=== PATIENT | male | born 1955 | race Two or more races ===

== ENCOUNTER 2024-12-10 18:33 | Emergency (ER) | payer OTHER, SELFPAY ==
[2024-12-10 18:47] VITALS: BP 163/79; PULSE 65; RESP 16; TEMP 36.6; O2SAT 98; BMI 29.7
--- NOTE | 2024-12-10 18:47 | ED_ITS ---
HPI - General Adult General Chief complaint: Dental/Oral Stated complaint: dental surgery today, heavy bleeding Time Seen by Provider: 12/11/24 01:21 Source: patient Limitations: no limitations History of Present Illness ED Provider: Luz Dinh PA-C HPI narrative: 69-year-old male presents with dental bleeding. Patient states he had multiple teeth extracted by his dentist today, he developed bleeding. Patient states he returned to his dentist, they placed additional sutures, however the bleeding returned. The patient is not on a blood thinner. Related Data Allergies Allergy/AdvReac Type Severity Reaction Status Date / Time No Known Allergies Allergy Verified 12/10/24 18:51 Review of Systems 2 Review of Systems: Yes all other systems are reviewed and are negative Constitutional: Constitutional: Denies fatigue, Denies fever(s) and Reports weakness ENT: Reports dental pain and Denies dizziness Cardiovascular: Cardiovascular: Denies chest pain and Denies dyspnea Respiratory: Respiratory: Denies dyspnea Neurologic: Denies dizziness and Reports weakness Endocrine: Endocrine: Denies fatigue [facility] Past Medical History Attestation statement: The following information was validated with the patient. Social History Social History Smoked in Last 30 Days: No Use of substances other than those prescribed or required for medical reasons: No Advance Directives: No Advance Directives Information Provided: Yes Do you have a plan to hurt others: No Plan Physical Exam ED Vital Signs: Vital Signs - 24 hr 12/10/24 18:47 12/11/24 00:30 Temperature 97.9 F 98.2 F Pulse Rate 65 63 Respiratory Rate 16 Blood Pressure 163/79 H 140/76 H Pulse Oximetry 98 97 Oxygen Delivery Method Room Air Room Air BMI result Body Mass Index 29.7 Const Other: Alert well-appearing Orientation/consciousness: patient oriented x3 HENMT Other: Multiple teeth extracted, upper central and lateral incisors, the sockets are not bleeding Resp Effort & Inspection: normal respiratory effort Cardio Other: Normal peripheral perfusion Skin Other: Warm dry no rash Neuro General: patient oriented x3, gait normal, no focal motor deficits and CN's II- XI intact bilaterally Psych Other: Cooperative Course Course Course Narrative: Rapid medical examination performed in triage by Taryn Neri PA-C. Patient is a 69 year old assigned male at presenting to the emergency department with dental bleeding. Patient states that he had several extractions today and has been having excessive bleeding. Patient states that he went back to the dentist and had stitches placed but he continues to bleed. Patient states that he is not on any anti-coagulation medications but is taking supplements that are considered blood thinning . Detailed physical exam and review of systems are deferred to the mental health clinician. Patient placed back in the waiting room pending room availability. Medications Administered Discontinued Medications Generic Name Dose Route Start Last Admin Trade Name Carla PRN Reason Stop Dose Admin Lactated Ringer's 1,000 mls @ 999 mls/hr 12/11/24 02:00 12/11/24 02:50 Lr IV 12/11/24 03:00 Infused .Q1H1M [place] Infusion Tranexamic Acid 500 mg 12/11/24 01:22 12/11/24 01:29 Tranexamic Acid 1,000 Mg/10 Ml Vial INTRANASAL 12/11/24 01:23 500 mg ONCE ONE Administration Medical Decision Making Medical Decision Making [facility] Narrative: 69-year-old male presents with dental bleeding. Patient states he had multiple teeth extracted by his dentist today, he developed bleeding. Patient states he returned to his dentist, they placed additional sutures, however the bleeding returned. The patient is not on a blood thinner. Problem: Multiple dental extractions History: Per patient and his I have considered the following differential diagnoses: Refractory bleeding Plan: The patient was instructed to use cold Tea bags and bite down on them, he did not, he thought he should be seen in the emergency room instead. I am having the patient bite down on gauze soaked in TXA. The patient is completely stable, his is adamant that we screen basic labs and give IV fluid therapy. She states he is weak and he has not eaten since yesterday. Erring on the side of caution, I will obtain labs and give IV fluids, I do not feel this is necessary. I have independently reviewed the following tests: Labs: No leukocytosis, not anemic, no electrolyte abnormality Differential Diagnosis Differential Diagnoses: The differential diagnosis associated with the presentation includes See medical decision-making Admission/Observation Consideration of admission/observation: Escalation of care including admission/observation considered Not applicable Lab Data [facility] Lab Attestation statement: I reviewed the patient's lab results. 12/11/24 01:39 12/11/24 01:39 Labs: Lab Results 12/11/24 Range/Units 01:39 WBC 8.6 (4.8-10.8) X10*3/uL RBC 5.48 (4.60-5.80) X10*6/uL Hgb 15.5 (14.0-18.0) g/dl Hct 43.7 (42.0-52.0) % MCV 79.7 L (80.0-98.0) fL MCH 28.3 (27.0-33.0) pg MCHC 35.5 (31.0-36.0) g/dl RDW 13.2 (11.0-16.0) % Plt Count 162 (160-400) X10*3/uL MPV 9.3 L (9.4-12.4) fL Immature Gran % (Auto) 0.2 (0.0-0.4) % Neut % (Auto) 58.2 (45-73) % Lymph % (Auto) 30.2 (20-40) % [place] % (Auto) 9.3 (2-11) % Eos % (Auto) 1.9 (0-4) % Baso % (Auto) 0.2 (0-2) % Lymph # (Auto) 2.6 (1.2-4.9) X10*3/uL [place] # (Auto) 0.8 (0.1-1.2) X10*3/uL Eos # (Auto) 0.2 (0.0-0.4) X10*3/uL Baso # (Auto) 0.0 (0.0-0.2) X10*3/uL Abs Immat Gran (auto) 0.02 (0.00-0.03) X10*3/uL Absolute Neuts (auto) 5.0 (2.0-8.3) x10*3/uL Absolute Nucleated RBC 0.000 (0.0-0.012) X10*3/uL Nucleated RBC % (auto) 0.0 (0.0-0.2) /100WBC Sodium 141 (135-145) mmol/L Potassium 4.0 (3.3-5.1) mmol/L Chloride 107 (96-108) mmol/L Carbon Dioxide 27 (22-29) mmol/L Anion Gap 11 L (12-20) BUN 13 (9-16) mg/dL Creatinine 0.93 (0.5-1.4) mg/dL Estim Creat Clear Calc 88.8 Estimated GFR > 60 Random Glucose 99 (60-115) mg/dL Calcium 9.3 (8.4-10.2) mg/dL Discharge Plan Discharge Clinical Impression: Gingival bleeding Patient Disposition: Home, Self-Care Additional Instructions: We were able to stop the dental bleeding with the solution used to constrict the blood vessels. If you have recurrence of the bleeding, soak Tea bags in cold water, then bite down on the Tea bag. All of your screening labs were completely normal. Continue to follow up with your oral surgeon as needed. Interventions: ED Discharge Assessment Last Done: 12/11/24 02:51 Discharge Date/Time: 12/11/24 02:53 Print Language: Wolof
--- NOTE | 2024-12-10 20:20 | PC.NURSE ---
Late entry Pt's to triage door requesting IV for patient d/t patient's inability to eat for several hours, worried about fatigue. informed by provider Taryn patient will be given IV once inside dept, staff is unable to give patients IVs in [place]. verbalized understanding.
[2024-12-11 00:30] VITALS: BP 140/76; PULSE 63; TEMP 36.8; O2SAT 97
[2024-12-11] MEDS: Tranexamic Acid 1,000 MG/10 ML VIAL 500 MG INTRANASAL (01:29)
--- NOTE | 2024-12-11 01:43 | PC.NURSE ---
pt medicated per mar.
[2024-12-11 01:45] LABS: Hematocrit 43.7 % (42.0-52.0); Hemoglobin 15.5 g/dl (14.0-18.0); Imm Gran Abs Auto 0.02 X10*3/uL (0.00-0.03); Imm Gran Pct Auto 0.2 % (0.0-0.4); Lymphocytes Absolute Auto 2.6 X10*3/uL (1.2-4.9); MANUAL DIFF FLAG NO; Mean Corpuscular HGB Conc 35.5 g/dl (31.0-36.0); Mean Corpuscular Hemoglobin 28.3 pg (27.0-33.0); Mean Corpuscular Volume 79.7 fL (80.0-98.0); NRBC Abs Auto 0.000 X10*3/uL (0.0-0.012); NRBC Pct Auto 0.0 /100WBC (0.0-0.2); Platelet Count 162 X10*3/uL (160-400); Red Blood Count 5.48 X10*6/uL (4.60-5.80); White Blood Count 8.6 X10*3/uL (4.8-10.8)
[2024-12-11] MEDS: Lactated Ringers 1,000 ML 999 ML IV (01:56)
[2024-12-11 02:00] LABS: Anion Gap 11 (12-20); Blood Urea Nitrogen 13 mg/dL (9-16); Calcium 9.3 mg/dL (8.4-10.2); Carbon Dioxide 27 mmol/L (22-29); Chloride 107 mmol/L (96-108); Creatinine Clr Calc Pharmacy 88.8; Estimated Glomerular Filt Rate > 60; Potassium 4.0 mmol/L (3.3-5.1); Sodium 141 mmol/L (135-145)
--- NOTE | 2024-12-11 02:40 | PC.NURSE ---
provider into assess pt, iv started and medicated per mar, bleeding under control.
[2024-12-11 02:51] VITALS: BP 140/76; PULSE 63; RESP 18; TEMP 36.8; O2SAT 97
== END 2024-12-11 02:53 | disposition home or self-care (01) ==
PROVIDERS: Physician Assistant Medical; Emergency Provider Emergency Medicine
DX: K05.10 Chronic gingivitis, plaque induced (principal); K91.840 Postprocedural hemorrhage of a digestive system organ or structure following a digestive system procedure
CPT/HCPCS: 36415; 80048; 85025; 96360; 99284; J7120